=== PATIENT | male | born 1990 | race African-American/Black ===

== ENCOUNTER → 2016-12-13 | Day surgery (SDC) | payer OTHER ==
[~2016-12-13] VITALS: Ht 175.3 cm; Wt 72.5 kg
[~2016-12-13] MED LIST: BUPIVACAINE HCL PF 0.5% 30 ML VIAL ONE; CEPH-460 PO; CHLORHEXIDINE GLUCONATE 2 % 1 PACK (2 CLOTHS) TOPICAL PRN; INSULIN HUMAN REGULAR 1,000 UNITS/10 ML VIAL SQ PRN; LACTATED RINGER'S 1000 ML IV PRN; LIDOCAINE 1%/EPINEPHrine 1:100,000 SOLN 30 ML VIAL ONE; LIDOCAINE HCL 2% 50 ML VIAL ONE; METOPROLOL TARTRATE 25 MG TAB PO PRN; MIDAZOLAM HCL 2 MG/2 ML VIAL ONE; NEOMYCIN/POLYMYXIN 1 ML G.U. IRRIGANT ONE; NORC5TAB PO; PALI156P IM; POVIDONE IODINE 5% (ANTISEPSIS KIT) 4 APPLICATIONS EACH NARE PRN; PROPOFOL 200 MG/20 ML AMP IV ONE; SODIUM CHLORID 0.9% 500 ML IV PRN; ceFAZolin 1,000 MG/NS 100 ML IV SCH
[2016-12-13 10:50] VITALS: BP 139/74; PULSE 66; RESP 18; TEMP 98.3; O2SAT 98
[2016-12-13 11:15] LABS: MEAN CELL VOLUME 87.6 FL (80.0-100.0); MEAN CORPUSCULAR HEMOGLOBIN 29.6 PG (27.0-34.0); MEAN CORPUSCULAR HGB CONC 33.8 % (32.0-36.0); PLATELET COUNT 237 TH/MM3 (150-450); RED BLOOD COUNT 4.79 MIL/MM3 (4.50-5.90); RED CELL DISTRIBUTION WIDTH 11.4 % (11.6-17.2); REVIEW FLAG FINAL; WHITE BLOOD COUNT 6.1 TH/MM3 (4.0-11.0)
[2016-12-13 12:31] VITALS: PULSE 61
[2016-12-13 13:15] VITALS: PULSE 74; TEMP 97.4
[2016-12-13 13:45] VITALS: BP 142/80; PULSE 74; RESP 14; O2SAT 100
--- NOTE | 2016-12-13 14:03 | MP ---
cc: AARON LEOS III, M.D. DATE OF SURGERY: 12/13/2016 PREOPERATIVE DIAGNOSIS Left dorsal wrist tumor. POSTOPERATIVE DIAGNOSIS Left dorsal wrist tumor. PROCEDURE Excisional biopsy left dorsal wrist tumor. SURGEON Aaron Leos III, MD DETAILS OF PROCEDURE The patient was brought to the operating and placed supine on the operating table. After the correct site and side of surgery were verified by members of each team in the room multiple times including the patient and myself, and after adequate preoperative markings and preoperative written consent were verified by everyone and after an adequate timeout was performed to everyone's satisfaction and after adequate IV sedation was achieved, the left upper extremity was prepped and draped in the traditional sterile surgical fashion. The mass was injected at its base with 1% lidocaine with epinephrine. The limb was then exsanguinated with a gentle Marcus wrap without compressing the mass. The mass was then sharply excised with an elliptical incision at its base identifying normal-appearing tissue and then sharp dissection using bipolar electrocautery copiously was used. The mass was excised in its entirety and passed off the field as a specimen. It was completely nonadherent to anything deep to the skin. There was no remnant left behind. Thorough irrigation with two liters of saline was performed. The skin edges were then tailored and were easily re-approximated using deep subcutaneous 3-0 Vicryl sutures and then running and interrupted 4-0 nylon sutures. The hand and arm were thoroughly cleansed and dried. Additional local anesthetic using a 50/50 mixture of 2% plain lidocaine and 0.5% plain Marcaine was infiltrated into the skin and subcutaneous tissue for postoperative pain relief. Betadine and Adaptic dressings were applied atop the wound followed by bulky soft dressing then a well-padded, well-molded short-arm volar immobilizing splint made in the usual fashion. The axillary tourniquet was released and the hand and all the fingers became immediately soft, pink and warm and had brisk capillary refill of less than two seconds. There was no evidence of any bleeding. There was no hematoma formation. The patient was awakened from anesthesia and transported to the post-anesthesia care unit awake and in stable condition at the end of the case. Sponge, needle and instrument counts were correct at the end of the case as reported by the nurses in the room. Aaron MD CONCHITA Peña III /12:59 PM /1:57 PM
== END | disposition home or self-care (01) ==
LOC: PHSDC 10:21
PROVIDERS: ATTEND Orthopaedic Surgery Hand Surgery
DX: R22.32 Localized swelling, mass and lump, left upper limb (principal)
CPT/HCPCS: 00400; 25071; 36415; 85027; 88305; J0690; J2250; J3010; J7120